=== PATIENT | female | born 1935 | race Caucasian/White ===

== ENCOUNTER → 2016-07-19 | Outpatient (CLI) | payer BC ==
[~2016-07-19] MED LIST: AMOXICILLIN500 MG PO; ASPIRIN81 M2 PO; BACTRIM,SEPT1 TABLET PO; CALCIUM 600 +1 EAC3 PO; CIPRO500 MG PO; COUMADIN5 MG PO; LO-DOSE ASPIRIN81 M2 PO; LOVENOX80 MG/0.8 SC; LUMIGAN 0.50 DROP/22 LEFT EYE; PERCOCET 5/31 TABLET PO; PLAVIX75 MG PO; PRESERVISION A1 EAC2 PO; PRESERVISION T1 EACH PO; REQUIP1 MG PO; ROPINIROLE HCL0.5 MG PO; TRAMADOL HCL50 MG PO; TYLENOL EXTRA500 MG PO; VITAMIN B-6100 MG PO; VITAMIN B12 100MCG PO; VITAMIN D31000 UNIT PO
== END | disposition home or self-care (01) ==
LOC: MRI 13:48 → RAD 14:30
DX: D16.4 Benign neoplasm of bones of skull and face (principal); D33.1 Benign neoplasm of brain, infratentorial; D42.0 Neoplasm of uncertain behavior of cerebral meninges; R22.0 Localized swelling, mass and lump, head
CPT/HCPCS: 70553

== ENCOUNTER → 2017-04-24 | Outpatient (CLI) | payer BC | END | disposition home or self-care (01) | LOC: RAD 09:23 | DX: N20.0 Calculus of kidney (principal) | CPT/HCPCS: 74176 ==

== ENCOUNTER 2017-11-17 16:34 | Emergency (ER) | payer BC ==
[~2017-11-17] VITALS: Ht 162.6 cm; Wt 79.7 kg
[2017-11-17 19:36] LABS: HEMATOCRIT 35.6 % (36.0-46.0); HEMOGLOBIN 12.3 G/DL (11.9-15.5); MCH 34.1 PG (29.0-34.0); MCHC 34.6 G/DL (30.0-36.0); MCV 98.6 FL (83-99); PLATELET COUNT 187 K/uL (156-360); RBC DIS.WIDTH-CV 12.7 % (11.8-14.6); RBC DIS.WIDTH-SD 46.1 % (39-53); RED BLOOD COUNT 3.61 M/uL (3.80-5.20)
[2017-11-17 19:46] LABS: CHLORIDE 107 mEq/L (99-109); POTASSIUM 3.8 mEq/L (3.7-5.4); SODIUM 142 mEq/L (136-147)
[2017-11-17 19:47] LABS: GLUCOSE 107 mg/dL (70-99)
[2017-11-17 19:51] LABS: CREATININE 0.8 mg/dL (0.6-1.3); GFR ESTIMATE (CALCULATED) > 59 mL/min/
[2017-11-17 19:52] LABS: UREA NITROGEN (BUN) 16 mg/dL (9-23)
[2017-11-17] MEDS ORDERED: KEFLEX500 MG PO (20:21)
[2017-11-17 20:38] VITALS: BP 198/101
== END 2017-11-17 20:40 | disposition home or self-care (01) ==
LOC: EME 16:34
PROVIDERS: Nurse Practitioner Family
DX: L03.115 Cellulitis of right lower limb (principal); R60.0 Localized edema; Z98.890 Other specified postprocedural states; J44.9 Chronic obstructive pulmonary disease, unspecified; Z86.718 Personal history of other venous thrombosis and embolism; Z86.711 Personal history of pulmonary embolism; Z87.442 Personal history of urinary calculi; Z90.710 Acquired absence of both cervix and uterus; Z79.82 Long term (current) use of aspirin; Z88.5 Allergy status to narcotic agent; Z88.8 Allergy status to other drugs, medicaments and biological substances; Z79.02 Long term (current) use of antithrombotics/antiplatelets
CPT/HCPCS: 80048; 85027; 93971; 99281; 99284